=== PATIENT | female | born 1960 | race Caucasian/White ===

== ENCOUNTER 2021-07-16 15:17 | Emergency (ER) | payer SELFPAY ==
[~2021-07-16 15:17] MED LIST: Iopamidol 370 76% 100 ML VIAL ONE
[2021-07-16] MEDS ORDERED: Acetaminophen 650 MG Suppository ONE (15:58)
[2021-07-16] MEDS ORDERED: Sodium Chloride 0.9% 1,000 ML ONE (15:58)
[2021-07-16 16:06] LABS: #Lymphocytes 0.8 thou/uL (1.20-3.40); #Monocytes 0.5 thou/uL (0.11-0.59); #Neutrophils 11.4 thou/uL (1.40-6.50); %Basophils 0.4 % (0.0-1.0); %Lymphocytes 6.4 % (21.0-51.0); %Monocytes 4.1 % (0.0-10.0); %Neutrophils 89.1 % (42.0-75.0); Hemoglobin 13.1 g/dL (12.0-16.0); Mean Corpuscular HGB CONC 32.9 g/dL (32.0-36.0); Mean Corpuscular Hemoglobin 29.1 pg (27.0-31.0); Mean Corpuscular Volume 88.3 fL (78.0-98.0); Mean Platelet Volume 7.9 fL (7.4-10.4); Platelet Count 182 thou/uL (130-400); RBC Distribution Width 11.4 % (11.5-14.5); Red Blood Cell (RBC) Count 4.52 mill/uL (4.20-5.40); White Blood Cell (WBC) Count 12.8 thou/uL (4.8-10.8)
[2021-07-16 16:14] LABS: INR-International Normal Ratio 1.2; Prothrombin Time 15.3 sec (12.0-14.7)
[2021-07-16 16:15] LABS: PTT 29.3 sec (22.9-36.1)
[2021-07-16 16:20] LABS: ALT (SGPT) 16 U/L (8-55); AST (SGOT) 17 U/L (5-34); Albumin 3.3 g/dL (3.4-4.8); Alkaline Phosphatase 65 U/L (40-110); Anion Gap 13 mmol/L (10-20); BUN (Urea Nitrogen) 10 mg/dL (9.8-20.1); Bilirubin, Total 0.6 mg/dL (0.2-1.2); Calc. Creatinine Clearance 0 mL/min (70-130); Calcium 8.3 mg/dL (7.8-10.44); Carbon Dioxide 24 mmol/L (23-31); Chloride 99 mmol/L (98-107); Globulin 2.5 g/dL (2.4-3.5); Glucose 180 mg/dL (80-115); Lipase 8 U/L (8-78); Protein, Total 5.8 g/dL (5.8-8.1); Sodium 133 mmol/L (136-145)
[2021-07-16 17:20] LABS: Bilirubin Negative (Negative); Blood, Urine Small (Negative); Glucose, Urine (Dipstick) Negative (Negative); Ketone, Urine Negative (Negative); Leukocyte Negative (Negative); Nitrite Positive (Negative); Protein, Urine (Dipstick) 30 mg/dL (Neg-Trace); Urobilinogen 0.2 mg/dL (Less than 2)
[2021-07-16 17:28] LABS: Clarity Hazy (Clear)
[2021-07-16 17:29] LABS: Bacteria/HPF 4+ HPF (None Seen); RBC/HPF 0-3 HPF (0-3); Squamous Epithelial 0-3 HPF (0-3); WBC/HPF 0-3 HPF (0-3)
[2021-07-16 17:33] LABS: SARS-CoV-2 NAA Rapid Test DETECTED (NotDetected)
[2021-07-16] MEDS ORDERED: Potassium Chloride 20 MEQ TAB ONE (18:33)
[2021-07-16] MEDS ORDERED: Piperacillin/Tazobactam 4.5 GM VIAL ONE (18:33)
[2021-07-16] MEDS ORDERED: Sodium Chloride 0.9% 100 ML ONE (18:33)
== END 2021-07-16 19:37 | disposition short-term general hospital (02) ==
LOC: EDSEX 15:17 → MADERS 15:17
DX: U07.1 COVID-19 (principal); K52.89 Other specified noninfective gastroenteritis and colitis; E87.6 Hypokalemia; I10 Essential (primary) hypertension; Z79.899 Other long term (current) drug therapy
CPT/HCPCS: 36415; 71045; 74177; 80053; 81003; 81015; 82274; 83605; 83690; 84484; 85025; 85610; 85730; 93005; 96365; J2543; J3490; J7050; Q9967; U0002